=== PATIENT | male | born 1965 | race Caucasian/White ===

== ENCOUNTER 2022-04-23 12:49 | Emergency (ER) | payer OTHER, SELFPAY ==
[2022-04-23 12:51] VITALS: BP 186/100; PULSE 77; RESP 17; TEMP 35.8; O2SAT 97; BMI 38.3
--- NOTE | 2022-04-23 13:20 | EDS_ITS ---
HPI History of Present Illness Chief Complaint: Flank Pain Narrative Narrative: 56-year-old male presenting with left flank pain. He states he has never had a history of kidney stone until today. He was seen at [facility] ER today. Patient states that he had blood work and a CAT scan which showed a 5 mm ureteral stone. He did not have a UTI. He states his pain was controlled with Dilaudid at the facility. He was discharged home with Percocet. He states that the emergency room did offer to transfer him to [facility] but he wanted to try to go home. The patient states that his family tried to call a urologist in [place] because he continued to have pain. Although he has Percocet at home he did not take any because he states it makes him feel jittery. Patient states that now he feels like he cannot void. [facility] Medical History Diabetes History of blood clots History of gastroesophageal reflux (GERD) Kidney stone Home Medications amlodipine 2.5 mg tablet 2.5 mg PO DAILY 04/23/22 [History Last Taken Unknown] dulaglutide 3 mg/0.5 mL subcutaneous pen injector (Trulicity) 3 mg subcut QWEEK 04/23/22 [History Last Taken Unknown] empagliflozin 25 mg tablet (Jardiance) 25 mg PO DAILY 04/23/22 [History Last Taken Unknown] lisinopril 20 mg tablet 20 mg PO DAILY 04/23/22 [History Last Taken Unknown] Allergy/AdvReac Type Severity Reaction Status Date / Time No Known Allergies Allergy Verified 04/23/22 12:50 Surgical History History of eye surgery Social History Smoking Status: Never smoker ROS ROS ED Constitutional Constitutional ED: Denies chills or fever(s) Eyes Eyes: Denies change in vision or other ENT ENT ED: Denies rhinorrhea or sore throat Cardiovascular Cardiovascular: Denies chest pain or palpitations Respiratory/Chest Respiratory/Chest: Denies cough or dyspnea Gastrointestinal Gastrointestinal: Reports abdominal pain and nausea; Denies constipation or diarrhea Genitourinary Genitourinary ED: Reports hematuria Musculoskeletal Musculoskeletal: Reports other Details: Left flank pain ; Denies arthralgias Integumentary Denies abscess Neurologic Neurologic: Denies headache(s) or paresthesias Psychiatric Psychiatric: Denies anxiety or depression EXAM Physical Exam Const Vital Signs: 04/23/22 12:51 Temperature 96.5 F L Temperature Source Temporal Pulse Rate 77 Respiratory Rate 17 Blood Pressure 186/100 H Blood Pressure Mean 128 Pulse Ox 97 Oxygen Delivery Method Room Air Positive well nourished and obese General Appearance ED: NAD; Negative for pallor Nutritional Appearance: obese HEENT Reports moist mucous membranes Eyes PERRL and EOMs intact bilaterally Resp normal respiratory effort Auscultation: Negative for rales, rhonchi or wheezes Cardio regular rate and regular rhythm Back/Spine General Back: CVA tenderness left Extremity normal to inspection Neuro oriented x3 and CN's II-XII intact bilaterally Sensorium / Orientation: alert Psych mental status grossly normal Skin General Skin Exam: Negative for jaundice or pallor MDM MDM MDM Narrative Medical decision making narrative: Patient did give me his lab work from this morning. His urinalysis not show any infection. He does have some occult blood in his urine. His CBC showed his white blood cell count was 9.4, hemoglobin 16.9, hematocrit 51.1, platelets 234. Patient's glucose was elevated at 217 without anion gap. electrolytes are normal. Creatinine was 1.21. GFR greater than 60. CT read was given to me and it looks like he has some left-sided hydronephrosis with a 5 mm stone in the left mid ureter. Patient is given Dilaudid and Zofran for pain and nausea. Bladder scan will be obtained because he states he is having trouble voiding. After further discussion with the patient he states that he did not like the way the Percocet that he was given at the ER today felt it made him jittery. He did not fill his prescription yet and he has not been taking any pain medication. He was also given a prescription for Toradol. The patient did report that he was told to come here if he has worsening pain but did not understand they needed to treat his pain. He states that he does not want to stay in the hospital and that he is going back to [place] tomorrow. I did check basic lab work and his CBC shows a slight leukocytosis of 12.3. But this is nonspecific although unchanged since earlier this morning the patient has had a couple episodes of vomiting. He had no evidence of infection in his urine. His renal function is still normal and normal electrolytes. Patient was counseled to use his prescription Percocet, Zofran, Toradol for home. Since he is leaving for [place] tomorrow I recommended that he call his PCP for referral for urology or present to the emergency room when he arrives. Impression: 1. Hematuria 2. 5 mm kidney stone 3. Hydronephrosis Lab Data Attestation: I reviewed the patient's lab results. Labs: Laboratory Results - last 24 hr 04/23/22 04/23/22 13:15 13:15 WBC 12.3 H RBC 5.70 Hgb 16.8 H Hct 50.9 MCV 89.3 MCH 29.5 MCHC 33.0 RDW Std Deviation 44.3 H RDW Coeff of Natasha 13.7 Plt Count 317 MPV 10.1 Immature Gran % (Auto) 0.400 Neut % (Auto) 81.6 H Lymph % (Auto) 11.7 L [place] % (Auto) 6.0 Eos % (Auto) 0.0 Baso % (Auto) 0.3 Absolute Neuts (auto) 10.0 H Absolute Lymphs (auto) 1.44 Nucleated RBC % 0 Sodium 138 Potassium 4.2 Chloride 106 Carbon Dioxide 23.0 Anion Gap 9 BUN 19 H Creatinine 1.29 Estim Creat Clear Calc 68.10 Est GFR (MDRD) Af Amer 74 Est GFR (MDRD) Non-Af 61 BUN/Creatinine Ratio 14.7 Glucose 178 H Calcium 9.3 Discharge Plan Triage Chief Complaint: Flank Pain ED Provider: Dillon Elam Dx/Rx/DC Orders Prescriptions: No Action lisinopril 20 mg Tablet 20 mg PO DAILY amlodipine 2.5 mg Tablet 2.5 mg PO DAILY Jardiance 25 mg Tablet 25 mg PO DAILY Trulicity 3 mg/0.5 mL Pen Injector 3 mg SUBCUT QWEEK Primary Care Provider: [facility] ,Out of Referrals: [facility] ,Out of [Primary Care Provider] -
[2022-04-23 13:30] LABS: Absolute Lymphocyte Count 1.44 X10^3/uL (0.83-4.51); Basophil# 0.04 X10^3/uL; Basophil% 0.3 % (0-1); Hematocrit 50.9 % (40-54); Hemoglobin 16.8 g/dL (13.0-16.5); Lymphocyte # 1.44 X10^3/ul (0.83-4.51); Lymphocyte % 11.7 % (19-41); Mean Corpuscular Hgb 29.5 pg (27.0-32.0); Mean Corpuscular Volume 89.3 fL (80-94); Mean Platelet Vol. 10.1 fl (6.2-12.0); Monocyte# 0.73 X10^3/uL; NRBC Flagged by Analyzer 0 % (0-5); Neutrophil % 81.6 % (47-70); Platelet Count 317 K/mm3 (150-450); RBC Distribution Width CV 13.7 % (11.6-14.6); RBC Distribution Width SD 44.3 fl (35.1-43.9); White Blood Count 12.3 K/mm3 (4.4-11.0)
[2022-04-23] MEDS: Ondansetron 4 MG/2 ML Vial IV (13:32)
[2022-04-23] MEDS: HYDROmorphone 0.5 MG/0.5 ML SYRINGE IV (13:36)
[2022-04-23 13:41] LABS: Anion Gap 9 (5-15); BUN 19 mg/dL (7-18); BUN/Creat Ratio 14.7 RATIO (10-20); Calcium,Total 9.3 mg/dL (8.5-10.1); Chloride 106 mmol/L (98-107); Creatinine, Serum 1.29 mg/dL (0.70-1.30); EST Glomerular Filtration Rate 61 mL/min (>60); Est Glom Filt Rate - Afr Amer 74 mL/min (>60); Glucose 178 mg/dL (74-106); Potassium 4.2 mmol/L (3.5-5.1); Sodium Level 138 mmol/L (136-145)
[2022-04-23] MEDS: HYDROmorphone 1 MG/ML Syringe IV (13:58)
[2022-04-23 14:29] LABS: Bacteria 0 SEEN /hpf (None Seen); Mucous, Urine 0 SEEN /hpf (<or=2+); White Blood Cells 0 SEEN /hpf (0-5)
[2022-04-23 14:41] LABS: Color, Urine Yellow (Yellow); Glucose, Dipstick 1000 mg/dl (Normal); Ketone-Dipstick 5 mg/dl (Negative); Leukocyte Esterase-Dipstick Negative /ul (Negative); Nitrite-Dipstick Negative (Negative); Occult Blood-Urine 150 /ul (Negative); Protein-Dipstick 30 mg/dl (Negative); Urine Bilirubin Dipstick Negative (Negative); Urine Clarity Clear (Clear); Urine Urobilinogen Normal (Normal)
[2022-04-23 14:55] LABS: Red Blood Cells-Urine 5-10 SEEN /hpf (0-5); Squamous Epithelial Cells - UA 0-5 SEEN /hpf (0-5)
[2022-04-23 15:05] VITALS: BP 144/94; PULSE 80; RESP 18; O2SAT 90
== END 2022-04-23 15:05 | disposition home or self-care (01) ==
PROVIDERS: Emergency Provider Student in an Organized Health Care Education/Training Program; Visit Provider Student in an Organized Health Care Education/Training Program
DX: N13.2 Hydronephrosis with renal and ureteral calculous obstruction (principal); E11.9 Type 2 diabetes mellitus without complications; R31.9 Hematuria, unspecified; R11.2 Nausea with vomiting, unspecified; K21.9 Gastro-esophageal reflux disease without esophagitis; E66.9 Obesity, unspecified; Z86.718 Personal history of other venous thrombosis and embolism
CPT/HCPCS: 80048; 81001; 85025; 96361; 96374; 96375; 99283; J7030; A4216; J2405